=== PATIENT | male | born 1965 | race Two or more races ===

== ENCOUNTER 2019-01-18 09:40 | Inpatient (IN) | payer OTHER ==
[2019-01-18 10:26] VITALS: BMI 31.6
--- NOTE | 2019-01-18 10:50 | HP ---
CIWA Score Nausea/Vomitin Muscle Tremors: 2 Anxiety: 2 Agitation: 2 Paroxysmal Sweats: 1-Minimal Palms Moist Orientation: 0-Oriented Tacttile Disturbances: 1-Very Mild Itch/Numbness Auditory Disturbances: 1-Very Mild Visual Disturbances: 0-None Headache: 2-Mild CIWA-Ar Total Score: 13 - Admission Criteria OASAS Guidelines: Admission for Medically Managed Detox: Requires at least one of the followin. CIWA greater than 12 2. Seizures within the past 24 hours 3. Delirium tremens within the past 24 hours 4. Hallucinations within the past 24 hours 5. Acute intervention needed for co occurring medical disorder 6. Acute intervention needed for co occurring psychiatric disorder 7. Severe withdrawal that cannot be handled at a lower level of care (continued vomiting, continued diarrhea, abnormal vital signs) requiring intravenous medication and/or fluids 8. Admission ROS S - HPI Chief Complaint: i am here,need help to stop drinking alcohol Allergies/Adverse Reactions: Allergies Allergy/AdvReac Type Severity Reaction Status Date / Time No Known Allergies Allergy Verified 01/18/19 10:16 History of Present Illness: this 53 years old male with alcohol dependence,seeking detox,withdrawal symptom, multiple admissions in detox but keep relapsing last treatment in [facility] in 03/24 syncope alcohol related history of hypertension on medication nicotine dependence 10 cigarette/day, longest sobriety 1 year plan for rehab after detox - Ebola screening Have you traveled outside of the country in the last 21 days: No (N) Have you had contact with anyone from an Ebola affected area: No Do you have a fever: No - Review of Systems Constitutional: Loss of Appetite, Malaise, Night Sweats, Changes in sleep EENT: reports: Nose Congestion Respiratory: reports: No Symptoms reported Cardiac: reports: No Symptoms Reported GI: reports: Nausea, Poor Appetite, Indigestion : reports: No Symptoms Reported Integumentary: reports: Dryness Neuro: reports: Headache, Tremors Endocrine: reports: No Symptoms Reported Hematology: reports: No Symptoms Reported Psychiatric: reports: No Sypmtoms Reported, Judgement Intact, Mood/Affect Appropiate, Orientated x3, other (bipolar disorder,borderlined personality) Other Systems: Reviewed and Negative Patient History - Patient Medical History Hx Anemia: No Hx Asthma: No Hx Chronic Obstructive Pulmonary Disease (COPD): No Hx Cancer: No Hx Cardiac Disorders: No Hx Congestive Heart Failure: No Hx Hypertension: Yes (on med) Hx Hypercholesterolemia: No Hx Pacemaker: No HX Cerebrovascular Accident: No Hx Seizures: No Hx Dementia: No Hx Diabetes: No Hx Gastrointestinal Disorders: No Hx Liver Disease: No Hx Genitourinary Disorders: No Hx Sexually Transmitted Disorders: No Hx Renal Disease (ESRD): No Hx Thyroid Disease: No Hx Human Immunodeficiency Virus (HIV): No (last 2017 negative) Hx Hepatitis C: No Hx Depression: Yes Hx Suicide Attempt: Yes (gerry trujillo 2003) Hx Bipolar Disorder: Yes Hx Schizophrenia: No Other Medical History: borderlined personality,no suicidal,no homicidal - Patient Surgical History Past Surgical History: Yes Hx Cataract Extraction: Yes (right in 2014,left 2016) - PPD History Previous Implant?: Yes Documented Results: Negative w/o proof Implanted On Prior [facility] Admission?: No PPD to be Administered?: Yes - Smoking Cessation Smoking history: Current every day smoker Have you smoked in the past 12 months: Yes Aproximately how many cigarettes per day: 10 Cigars Per Day: 0 Hx Chewing Tobacco Use: No Initiated information on smoking cessation: Yes 'Breaking Loose' booklet given: 01/18/19 - Substance & Tx. History Hx Alcohol Use: Yes Hx Substance Use: No Substance Use Type: Alcohol Hx Substance Use Treatment: Yes ([facility] in 03/24) - Substances abused Alcohol Substance route: Oral Frequency: Daily Amount used: 4 24 OUNCES [employer] BEER Age of first use: 18 Date of last use: 01/17/19 Family Disease History - Family Disease History Family History: Denies Admission Physical Exam S - Vital Signs Vital Signs: Vital Signs - 24 hr 01/18/19 10:22 Temperature 98.7 F Pulse Rate 86 Respiratory 18 Rate Blood Pressure 146/92 - Physical General Appearance: Yes: Moderate Distress, Tremorous, Irritable, Sweating, Anxious HEENTM: Yes: Normal ENT Inspection, JONAS, Pharynx Normal Respiratory: Yes: Lungs Clear, Normal Breath Sounds, No Respiratory Distress Neck: Yes: Within Normal Limits, Supple, Trachea in good position Breast: Yes: Within Normal Limits Cardiology: Yes: Within Normal Limits, Regular Rhythm, Regular Rate, S1, S2 Abdominal: Yes: Within Normal Limits, Normal Bowel Sounds, Non Tender, Flat Genitourinary: Yes: Within Normal Limits Back: Yes: Muscle Spasm Musculoskeletal: Yes: full range of Motion, Back pain, Muscle Pain Extremities: Yes: Tremors Neurological: Yes: qualification engineer II-XII NML intact, Fully Oriented, Alert, Motor Strength 5/5 Integumentary: Yes: Dry Lymphatic: Yes: Within Normal Limits - Diagnostic (1) Alcohol dependence with uncomplicated withdrawal Current Visit: Yes Status: Acute (2) Syncope Current Visit: Yes Status: Acute (3) Hypertension Current Visit: Yes Status: Acute (4) Nicotine dependence Current Visit: Yes Status: Acute (5) Bipolar disorder Current Visit: Yes Status: Acute (6) Borderline personality disorder Current Visit: Yes Status: Acute Cleared for Admission S - Detox or Rehab [facility] Level of Care: Medically Managed Detox Regimen/Protocol: Librium Breathalyzer - Breathalyzer Breathalyzer: 0 Urine Drug Screen - Test Device Lot number: [id number] Expiration date: 09/05/20 - Control Is test valid?: Yes - Results Drug screen NEGATIVE: Yes Inpatient Rehab Admission - Rehab Decision to Admit Inpatient rehab admission?: No
[2019-01-18] MEDS ORDERED: MENTHOL/PHENOL 1 EACH UD MM PRN (10:59)
[2019-01-18] MEDS ORDERED: chlordiazePOXIDE HCL 25 MG CAPSULE PO PRN (10:59)
[2019-01-18] MEDS ORDERED: IBUPROFEN 400 MG TABLET (FP) PO PRN (10:59)
[2019-01-18] MEDS ORDERED: MAG HYDROX/AL HYDROX/SIMETH 30 ML UNIT-DOSE CUP PO PRN (10:59)
[2019-01-18] MEDS ORDERED: MAGNESIUM CITRATE 300 ML BOTTLE PO PRN (10:59)
[2019-01-18] MEDS ORDERED: MAGNESIUM HYDROX 2400MG/30ML ORAL SUSPENSION 30 ML CUP PO PRN (10:59)
[2019-01-18] MEDS ORDERED: hydrOXYzine PAMOATE 25 MG CAPSULE (FP) PO PRN (10:59)
[2019-01-18] MEDS ORDERED: METHOCARBAMOL 500 MG TABLET PO PRN (10:59)
[2019-01-18] MEDS ORDERED: ACETAMINOPHEN 325 MG TABLET (FP) PO PRN ×2 (10:59)
[2019-01-18] MEDS ORDERED: BISMUTH SUBSALICYLATE 524 MG/30 ML UD PO PRN (10:59)
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
[2019-01-18] MEDS: POLYETHYLENE GLYCOL 3350 255 GM BTL PO SCH (13:31)
[2019-01-18] MEDS: chlordiazePOXIDE HCL 25 MG CAPSULE PO SCH ×2 (17:12→22:25)
[2019-01-18] MEDS ORDERED: QUEtiapine FUMARATE 100 MG TABLET (FP) ONE (21:18)
[2019-01-18] MEDS: THIAMINE HCL 100 MG TABLET (FP) PO SCH (22:24)
[2019-01-18] MEDS: QUEtiapine FUMARATE 300 MG TABLET PO SCH (22:24)
[2019-01-18] MEDS: MELATONIN 5 MG TABLETS PO PRN (22:24)
[2019-01-19] MEDS: chlordiazePOXIDE HCL 25 MG CAPSULE PO SCH ×4 (06:45→22:07)
--- NOTE | 2019-01-19 09:52 | PN ---
S CIWA - CIWA Score Nausea/Vomitin-Mild Nausea/No Vomiting Muscle Tremors: 2 Anxiety: 3 Agitation: 2 Paroxysmal Sweats: 1-Minimal Palms Moist Orientation: 3-Disoriented Date>2 days Tacttile Disturbances: 0-None Auditory Disturbances: 0-None Visual Disturbances: 0-None Headache: 0-None Present CIWA-Ar Total Score: 12 S Progress Note (SOAP) Subjective: appeals writer called [phone] pharmacy for list of medication patient received 30 days medications of seroquel 400 mg po bid and lithium 60 mg po bid and cogentin 1 mg po bid lithium lab serum level ordered psychiatrist referral Objective: 01/19/19 09:59 Vital Signs Temperature 96.1 F L 01/19/19 09:07 Pulse Rate 78 01/19/19 09:07 Respiratory Rate 18 01/19/19 09:07 Blood Pressure 118/83 01/19/19 09:07 O2 Sat by Pulse Oximetry (%) lab pending Assessment: 01/19/19 10:00 withdrawal sx bipolar II Plan: continue detox psychiatrist referral for lithium and cogentin and seroquel due to unknown last dose
[2019-01-19] MEDS ORDERED: PRENATAL VITAMINS W/ FOLIC ACID TABLET (FP) PO SCH (10:00)
[2019-01-19 10:02] LABS: HEMATOCRIT 38.1 % (35.4-49); HEMOGLOBIN 12.8 GM/dL (11.7-16.9); MCH 32.9 pg (25.7-33.7); MCHC 33.6 g/dl (32.0-35.9); MEAN CELL VOLUME 97.7 fl (80-96); MEAN PLT VOLUME 7.9 fl (7.5-11.1); PLATELET COUNT 282 K/MM3 (134-434); RDW 13.4 % (11.9-15.9); WHITE BLOOD COUNT 4.3 K/mm3 (4.0-10.0)
[2019-01-19 10:07] LABS: ALBUMIN 3.2 g/dl (3.4-5.0); ALK PHOS 48 U/L (45-117); ANION GAP 4 MMOL/L (8-16); BILIRUBIN,TOTAL 0.4 mg/dL (0.2-1); BLOOD UREA NITROGEN 15 mg/dL (7-18); CHLORIDE 106 mmol/L (98-107); CO2 27 mmol/L (21-32); GLUCOSE,RANDOM 120 mg/dL (74-106); POTASSIUM 3.7 mmol/L (3.5-5.1); SGOT/AST 14 U/L (15-37); SGPT/ALT 19 U/L (13-61); SODIUM 138 mmol/L (136-145); TOT PROT 6.6 g/dl (6.4-8.2)
--- NOTE | 2019-01-19 10:40 | EKG ---
Test Reason : Blood Pressure : / mmHG Vent. Rate : 079 BPM Atrial Rate : 079 BPM P-R Int : 174 ms QRS Dur : 106 ms QT Int : 402 ms P-R-T Axes : 051 050 041 degrees QTc Int : 460 ms NORMAL SINUS RHYTHM NORMAL ECG NO PREVIOUS ECGS AVAILABLE Confirmed by ESTELA GREWAL MD ([id number]) on 01/19/2019 10:40:41 AM Referred By: Confirmed By:ESTELA GREWAL MD
[2019-01-19] MEDS: POLYETHYLENE GLYCOL 3350 255 GM BTL PO SCH (12:48)
--- NOTE | 2019-01-19 14:15 | PN ---
[facility] Progress Note Note: Psychiatry Attending's note (follow-up) : Approached by patient. Reason : doses of medications. Mr Valentine was admitted on 01/18/19. Diagnosis : Bipolar Disorder. Followed at [facility]. Wants his regular seroquel 900 mg/hs. Currently receiving 600 mg po hs. Chart reviewed. Sandy level is requested. Dr Egan's note of 01/18/19 : appreciated. Call made to [facility] at [phone] : unanswered. Called [facility] at [phone]. Patient is prescribed : lithium 450 mg po bid Seroquel 400 mg po bid cogentin 1 mg po bid By psychiatrist Dr Leon Guadalupe. Medications were refilled on 12/30/18. Sandy held until level becomes available. Seroquel is kept at 600 mg/hs until further orders.
[2019-01-19 16:53] LABS: PH,URINE 6.5 (5.0-8.0); URINE APPEARANCE CLEAR; URINE BILIRUBIN NEGATIVE (NEGATIVE); URINE COLOR YELLOW; URINE GLUCOSE (UA) NEGATIVE (NEGATIVE); URINE KETONE NEGATIVE (NEGATIVE); URINE LEUK ESTERASE NEGATIVE (NEGATIVE); URINE NITRITE NEGATIVE (NEGATIVE); URINE PROTEIN NEGATIVE (NEGATIVE); URINE UROBILINOGEN 0.2 mg/dL (0.2-1.0)
[2019-01-19] MEDS ORDERED: QUEtiapine FUMARATE 100 MG TABLET (FP) ONE (21:05)
[2019-01-19] MEDS: THIAMINE HCL 100 MG TABLET (FP) PO SCH (22:06)
[2019-01-19] MEDS: MELATONIN 5 MG TABLETS PO PRN (22:07)
[2019-01-19] MEDS: QUEtiapine FUMARATE 300 MG TABLET PO SCH (22:07)
[2019-01-20] MEDS: chlordiazePOXIDE HCL 25 MG CAPSULE PO SCH (05:56)
[2019-01-20 06:15] VITALS: BP 105/64; PULSE 76; TEMP 97.3
--- NOTE | 2019-01-20 08:27 | DS ---
[facility] Detox Discharge Summary Admission Date: 01/18/19 Discharge Date: 01/20/19 - History Present History: Alcohol Dependence Additional Comments: 53 years old male admitted on 01/18/19 for alcohol withdrawal stabilization patient demands seroquel 900 mg po at night patient insists to leave the detox unit if he can not have seroquel 900 mg Pertinent Past History: encourage bring in medication list and lab report to aftercare appointment - Physical Exam Results Vital Signs: Vital Signs Temperature 97.3 F L 01/20/19 06:15 Pulse Rate 76 01/20/19 06:15 Respiratory Rate 18 01/20/19 06:30 Blood Pressure 105/64 01/20/19 06:15 O2 Sat by Pulse Oximetry (%) Pertinent Admission Physical Exam Findings: alcohol withdrawal sx Laboratory Last Values WBC 4.3 K/mm3 (4.0-10.0) 01/19/19 07:00 RBC 3.90 M/mm3 (4.00-5.60) L 01/19/19 07:00 Hgb 12.8 GM/dL (11.7-16.9) 01/19/19 07:00 Hct 38.1 % (35.4-49) 01/19/19 07:00 MCV 97.7 fl (80-96) H 01/19/19 07:00 MCH 32.9 pg (25.7-33.7) 01/19/19 07:00 MCHC 33.6 g/dl (32.0-35.9) 01/19/19 07:00 RDW 13.4 % (11.9-15.9) 01/19/19 07:00 Plt Count 282 K/MM3 (134-434) 01/19/19 07:00 MPV 7.9 fl (7.5-11.1) 01/19/19 07:00 Sodium 138 mmol/L (136-145) 01/19/19 07:00 Potassium 3.7 mmol/L (3.5-5.1) 01/19/19 07:00 Chloride 106 mmol/L (98-107) 01/19/19 07:00 Carbon Dioxide 27 mmol/L (21-32) 01/19/19 07:00 Anion Gap 4 MMOL/L (8-16) L 01/19/19 07:00 BUN 15 mg/dL (7-18) 01/19/19 07:00 Creatinine 1.0 mg/dL (0.55-1.3) 01/19/19 07:00 Creat Clearance w eGFR 78.47 (>60) 01/19/19 07:00 Random Glucose 120 mg/dL (74-106) H 01/19/19 07:00 Calcium 9.0 mg/dL (8.5-10.1) 01/19/19 07:00 Total Bilirubin 0.4 mg/dL (0.2-1) 01/19/19 07:00 AST 14 U/L (15-37) L 01/19/19 07:00 ALT 19 U/L (13-61) 01/19/19 07:00 Alkaline Phosphatase 48 U/L (45-117) 01/19/19 07:00 Total Protein 6.6 g/dl (6.4-8.2) 01/19/19 07:00 Albumin 3.2 g/dl (3.4-5.0) L 01/19/19 07:00 Urine Color Yellow 01/19/19 14:40 Urine Appearance Clear 01/19/19 14:40 Urine pH 6.5 (5.0-8.0) 01/19/19 14:40 Ur Specific [place] 1.016 (1.010-1.035) 01/19/19 14:40 Urine Protein Negative (NEGATIVE) 01/19/19 14:40 Urine Glucose (UA) Negative (NEGATIVE) 01/19/19 14:40 Urine Ketones Negative (NEGATIVE) 01/19/19 14:40 Urine Blood Negative (NEGATIVE) 01/19/19 14:40 Urine Nitrite Negative (NEGATIVE) 01/19/19 14:40 Urine Bilirubin Negative (NEGATIVE) 01/19/19 14:40 Urine Urobilinogen 0.2 mg/dL (0.2-1.0) 01/19/19 14:40 Ur Leukocyte Esterase Negative (NEGATIVE) 01/19/19 14:40 RPR Titer Nonreactive (NONREACTIVE) 01/19/19 07:00 lab noted - Treatment Hospital Course: Detox Protocol Followed, Responded well Patient has Accepted a Rehab Referral to: [facility] - Medication Discharge Medications: Ambulatory Orders Benztropine Mesylate [Cogentin -] 2 mg PO BID 01/18/19 [place] Carbonate [Lithobid] 500 mg PO BID 01/18/19 Naproxen [Naprosyn -] 500 mg PO BID 01/18/19 Polyethylene Glycol 3350 [Miralax (For Bowel Prep) -] 17 gm PO DAILY 01/18/19 Quetiapine Fumarate [Seroquel -] 900 mg PO HS 01/18/19 - Diagnosis (1) Bipolar I disorder Status: Suspected (2) Alcohol dependence with uncomplicated withdrawal Status: Acute (3) Hypertension Status: Chronic Qualifiers: Hypertension type: essential hypertension Qualified Code(s): I10 - Essential (primary) hypertension (4) Nicotine dependence Status: Acute Qualifiers: Nicotine product type: cigarettes Substance use status: in withdrawal Qualified Code(s): F17.213 - Nicotine dependence, cigarettes, with withdrawal - AMA Did Patient Leave Against Medical Advice: Yes
[2019-01-20] MEDS ORDERED: chlordiazePOXIDE HCL 10 MG CAPSULE PO SCH (17:00)
[2019-01-20] MEDS ORDERED: chlordiazePOXIDE HCL 10 MG CAPSULE PO PRN (17:00)
[2019-01-21] MEDS ORDERED: chlordiazePOXIDE HCL 10 MG CAPSULE PO SCH (17:00)
== END 2019-01-20 09:12 | disposition left against medical advice (07) | DRG 770 ==
LOC: YASAS 09:40 → Y3N 11:02
PROVIDERS: ADMIT Surgery; ATTEND Surgery
PROC: HZ2ZZZZ Detoxification Services for Substance Abuse Treatment (ICD-10-PCS; principal; 2019-01-18)
DX: F10.230 Alcohol dependence with withdrawal, uncomplicated (principal); F17.213 Nicotine dependence, cigarettes, with withdrawal; F31.9 Bipolar disorder, unspecified; F60.3 Borderline personality disorder; I10 Essential (primary) hypertension; R55 Syncope and collapse; Z91.5 Personal history of self-harm
CPT/HCPCS: 36415; 80053; 80178; 81003; 85027; 86593; 93005; 93010